=== PATIENT | female | born 1975 | race Two or more races ===

== ENCOUNTER 2019-02-16 00:53 | Emergency (ER) | payer OTHER ==
[~2019-02-16] VITALS: Ht 167.6 cm; Wt 50.3 kg
[~2019-02-16 00:53] MED LIST: AMITRIPTYLINE H10 MG; ATIVAN0.5 M1; CELEXA10 MG; INTESTINEX1 CAP PO; LEXAPRO5 MG; XELJANZ5 MG; ZANTAC150 MG PO
[2019-02-16] MEDS ORDERED: DIPROLENE 0.05%15 GM SUBCUTANEO (05:05)
[2019-02-16] MEDS ORDERED: BENADRYL25 MG PO (05:05)
[2019-02-16] MEDS ORDERED: MEDROL4 MG PO (05:05)
== END 2019-02-16 05:14 | disposition home or self-care (01) ==
LOC: ER 00:53
DX: T78.49XA Other allergy, initial encounter (principal); R21 Rash and other nonspecific skin eruption

== ENCOUNTER 2020-06-03 16:58 | Inpatient (IN) | payer OTHER ==
[~2020-06-03] VITALS: Ht 167.6 cm; Wt 54.4 kg
[~2020-06-03 16:58] MED LIST changes: +BENADRYL25 MG PO; +DIPROLENE 0.05%15 GM SUBCUTANEO; +MEDROL4 MG PO
== END 2020-06-05 20:48 | disposition home or self-care (01) | DRG 744 ==
LOC: LAB 16:58 → OB/GYN 17:56
PROVIDERS: ADMIT Obstetrics & Gynecology; ATTEND Obstetrics & Gynecology
PROC: 0UDB8ZZ Extraction of Endometrium, Via Natural or Artificial Opening Endoscopic (ICD-10-PCS; principal; 2020-06-04 14:30)
DX: N92.1 Excessive and frequent menstruation with irregular cycle (principal); D62 Acute posthemorrhagic anemia; N93.8 Other specified abnormal uterine and vaginal bleeding; Z20.822 Contact with and (suspected) exposure to COVID-19

== ENCOUNTER 2021-09-01 17:12 | Emergency (ER) | payer OTHER ==
[~2021-09-01] VITALS: Ht 167.6 cm; Wt 58.1 kg
[2021-09-02] MEDS ORDERED: KETO10TA2 PO (05:20)
[2021-09-02] MEDS ORDERED: CIPRO500 MG PO (05:20)
== END 2021-09-02 05:59 ==
LOC: ER 17:12
DX: K63.89 Other specified diseases of intestine (principal); Z88.1 Allergy status to other antibiotic agents; Z88.8 Allergy status to other drugs, medicaments and biological substances

== ENCOUNTER 2021-12-12 13:33 | Emergency (ER) | payer OTHER ==
[~2021-12-12] VITALS: Ht 167.6 cm; Wt 55.3 kg
[~2021-12-12 13:33] MED LIST changes: +CIPRO500 MG PO; +KETO10TA2 PO
[2021-12-12] MEDS ORDERED: CELEXA20 MG PO (13:45)
== END 2021-12-12 17:32 | disposition home or self-care (01) ==
LOC: ER 13:33
DX: N92.6 Irregular menstruation, unspecified (principal); Z88.8 Allergy status to other drugs, medicaments and biological substances

== ENCOUNTER 2022-02-10 09:47 | Day surgery (SDC) | payer OTHER ==
[~2022-02-10 09:47] MED LIST changes: +CELEXA20 MG PO
== END 2022-02-11 03:30 | disposition home or self-care (01) ==
LOC: CIR.AMB 09:47
PROVIDERS: ATTEND Obstetrics & Gynecology
DX: N72 Inflammatory disease of cervix uteri (principal); Z20.822 Contact with and (suspected) exposure to COVID-19; Z88.8 Allergy status to other drugs, medicaments and biological substances

== ENCOUNTER 2022-03-29 11:23 | Emergency (ER) | payer OTHER ==
[~2022-03-29] VITALS: Ht 167.6 cm; Wt 55.3 kg
== END 2022-03-29 17:14 | disposition home or self-care (01) ==
LOC: ER 11:23
DX: B34.9 Viral infection, unspecified (principal); Z20.822 Contact with and (suspected) exposure to COVID-19

== ENCOUNTER 2023-12-12 21:48 | Emergency (ER) | payer OTHER ==
[~2023-12-12] VITALS: Ht 167.6 cm; Wt 58.1 kg
[2023-12-12 23:16] LABS: URINE APPEARANCE Cloudy; URINE BILIRRUBIN Negative (NEGATIVE); URINE BLOOD Moderate; URINE COLOR Yellow; URINE GLUCOSE Negative (NEGATIVE); URINE KETONE Negative (NEGATIVE); URINE LEUKOCYTE Moderate; URINE NITRATE Negative; URINE PROTEIN Negative (NEGATIVE); URINE UROBILINOGEN 0.2 E.U./dl
[2023-12-12 23:20] LABS: URINE BACTERIA 7027.7 uL (0.0-1933); URINE EPITHELIAL CELLS 4.1 uL (0.0-38.8); URINE RBC 301.1 uL (0.0-20.8)
[2023-12-12 23:33] LABS: HEMATOCRIT 38.4 % (36.0-45.00); MEAN CORPUSCULAR HEMOGLOBIN 22.1 pg (27.00-32.0); MEAN CORPUSCULAR HGB CONC 31.2 g/dl (32.0-36.0); PLATELET COUNT 238 K/uL (150-450)
[2023-12-12 23:42] LABS: CALCIUM 9.2 mg/dL (8.5-10.1); CREATININE SERUM 0.71 mg/dL (0.55-1.02); GFR 88.24; POTASSIUM 4.1 mEq/L (3.5-5.1)
== END 2023-12-13 00:28 | disposition home or self-care (01) ==
LOC: ER 21:50
PROVIDERS: General Practice
DX: R30.0 Dysuria (principal); Z88.8 Allergy status to other drugs, medicaments and biological substances; N39.0 Urinary tract infection, site not specified

== ENCOUNTER 2024-03-25 19:43 | Emergency (ER) | payer OTHER ==
[~2024-03-25] VITALS: Ht 167.6 cm; Wt 57.6 kg
[2024-03-25 22:30] LABS: PH,URINE 5.5 (5.0-8.0); URINE APPEARANCE Cloudy; URINE BILIRRUBIN Negative (NEGATIVE); URINE BLOOD Large; URINE COLOR Dark Yellow; URINE GLUCOSE Negative (NEGATIVE); URINE KETONE 15 (NEGATIVE); URINE LEUKOCYTE Moderate; URINE NITRATE Positive; URINE PROTEIN 30 (NEGATIVE)
[2024-03-25 22:33] LABS: URINE CAST 2.79 uL (0.0-1.40); URINE EPITHELIAL CELLS 23.9 uL (0.0-38.8); URINE RBC 290.9 uL (0.0-20.8); URINE WBC 2302.4 uL (0.0-23.2)
[2024-03-25 22:44] LABS: URINE BACTERIA > 9821.5 uL (0.0-1933); URINE CRYSTALS FEW /HPF
== END 2024-03-25 23:20 | disposition home or self-care (01) ==
LOC: ER 19:45
PROVIDERS: General Practice
DX: N39.0 Urinary tract infection, site not specified (principal); Z88.0 Allergy status to penicillin; Z88.1 Allergy status to other antibiotic agents; Z88.8 Allergy status to other drugs, medicaments and biological substances